=== PATIENT | female | born 1980 | race African-American/Black ===

== ENCOUNTER 2022-11-03 15:22 | Outpatient (CLI) | payer MEDICAID | END 2022-11-03 15:23 | disposition home or self-care (01) | LOC: BICULT 15:22 | PROVIDERS: ATTEND Nurse Practitioner Women's Health | DX: N92.0 Excessive and frequent menstruation with regular cycle (principal) | CPT/HCPCS: 76856; 93976 ==

== ENCOUNTER 2022-11-23 14:48 | Outpatient (CLI) | payer MEDICAID | END 2022-11-23 14:49 | disposition home or self-care (01) | LOC: BICMAMMO 14:48 | PROVIDERS: ATTEND Nurse Practitioner Women's Health | DX: Z12.31 Encounter for screening mammogram for malignant neoplasm of breast (principal) | CPT/HCPCS: 77067 ==